=== PATIENT | male | born 1965 | race Caucasian/White ===

== ENCOUNTER 2023-01-27 12:43 | Emergency (ER) | payer SELFPAY ==
--- NOTE | 2023-01-27 13:33 | NUR ---
PATIENT LEFT WITHOUT BEING SEEN BY DR. OAKLEY. NO FURTHER CARE PROVIDED FOR PATIENT.
== END 2023-01-27 13:33 | disposition left against medical advice (07) ==
LOC: MED 12:43
DX: R10.9 Unspecified abdominal pain (principal); Z53.21 Procedure and treatment not carried out due to patient leaving prior to being seen by health care provider